=== PATIENT | female | born 1990 | race Caucasian/White ===

== ENCOUNTER 2016-10-19 07:38 | Day surgery (SDC) | payer BC ==
[~2016-10-19 07:38] MED LIST: Buffered Lidocaine 0.9% SYRIN* 5 ML/SYR SYRINGE INTRADERM ONE; Buffered Lidocaine 0.9% SYRIN* 5 ML/SYR SYRINGE ONE; Famotidine IV* 10 MG/ML 2 ML (20 mg) IV ONE; Famotidine IV* 10 MG/ML 2 ML (20 mg) ONE; Metoclopramide TAB* 10 MG ONE; Metoclopramide TAB* 10 MG PO ONE
[2016-10-19 07:50] LABS: Manual Entry Verification HAN0055; UR Preg Internal Control QC Line Present
[2016-10-19] MEDS ORDERED: Ondansetron INJ* 2 MG/ML VIAL ONE (08:45)
[2016-10-19] MEDS ORDERED: Dexamethasone IV* 4 MG/ML 1 ML (4 MG) ONE (08:45)
[2016-10-19] MEDS ORDERED: Propofol* 10 MG/ML 20 ML BTL IV PUSH ONE (08:45)
[2016-10-19] MEDS ORDERED: fentaNYL* 50 MCG/ML 2 ML VIAL (100 MCG VIAL) ONE ×2 (08:45→09:47)
[2016-10-19] MEDS ORDERED: Lidocaine 2% PF * 5 ML VIAL ONE (08:45)
[2016-10-19] MEDS ORDERED: Midazolam* 1 MG/ML 5 ML VIAL (5 MG) ONE (08:46)
[2016-10-19] MEDS ORDERED: Neostigmine Methylsulfate* 2 MG/2 ML SYRINGE ONE (08:49)
[2016-10-19] MEDS ORDERED: Glycopyrrolate IV* 0.2 MG/ML 1 ML VIAL ONE (08:49)
[2016-10-19] MEDS ORDERED: Ondansetron INJ* 2 MG/ML VIAL IV PRN (10:21)
[2016-10-19] MEDS ORDERED: Scopolamine 1.5 mg* PATCH TRANSDERM PRN (10:21)
[2016-10-19] MEDS ORDERED: DiMENhydriNATE IV* 50 MG/ML VIAL IV PUSH PRN (10:21)
[2016-10-19] MEDS ORDERED: fentaNYL* 50 MCG/ML 2 ML VIAL (100 MCG VIAL) IV PRN (10:21)
[2016-10-19] MEDS ORDERED: HYDROcodone/ACET. 7.5/325 LIQ* 15 ML UDC ONE (10:45)
[2016-10-19 11:27] VITALS: BP 108/80
--- NOTE | 2016-10-20 04:01 | OP ---
DATE OF OPERATION: 10/19/16 - [facility] DATE OF : 89 SURGEON: Sushil Arellano MD TESTING SPECIALIST: None. ANESTHESIA: General. PRE-OP DIAGNOSIS: Chronic tonsillitis. POST-OP DIAGNOSIS: Chronic tonsillitis. OPERATIVE PROCEDURE: Tonsillectomy. ESTIMATED BLOOD LOSS: Negligible. SPECIMENS: Right and left tonsils to pathology. DETAILS OF PROCEDURE: This is a 26-year-old woman who presented for an elective tonsillectomy for treatment of recurrent strep tonsillitis. She was brought to the operating room. General anesthesia was induced and an oral endotracheal tube was placed. The table was turned. The patient was draped and a time-out performed. The right tonsil was grasped with a straight Allis forceps, retracted medially and dissected free of its fossa with a coblation device at a setting of 7 and 3. There was no bleeding. The left tonsil was removed in an identical fashion again utilizing the coblation device at a setting of 7 and 3 with no bleeding. Once the tonsils were removed, the coag setting on the device was turned up to 5. The superior and inferior pole regions were prophylactically cauterized. The mouth gag was then let down for a period of a minute. It was opened again, there was no evidence of active bleeding. An orogastric tube was passed into the stomach and the stomach contents were evacuated. The patient was then returned to the care of the anesthesiologist, extubated, and delivered to the PACU in stable condition. [id number] #: [id number] MTDD
[2016-10-22] MEDS ORDERED: Scopolomine PATCH Remove* 1 NOTE MISC PATCH OFF ONE (10:22)
== END 2016-10-19 11:39 | disposition home or self-care (01) ==
LOC: OR 07:38
PROVIDERS: ATTEND Otolaryngology
DX: J35.01 Chronic tonsillitis (principal)
CPT/HCPCS: 81025; 88304; A9270-GY; J1100; J2250; J2405; J2704; J3010